=== PATIENT | female | born 1960 | race Caucasian/White ===

== ENCOUNTER 2016-12-01 14:30 | Emergency (ER) | payer BC, MEDICAID, SELFPAY ==
[~2016-12-01 14:30] MED LIST: /ADVA50050 IN; /MOXI40TA OR; /TIOT18INH INH; ALBUTEROL INH; ANTIDEPRESSANT PO; ASPI81TA83 OR; ATROVENT0.02% INH; CALCCHW12 OR; CENTRUM SILVER PO; CHOLESTEROL PILL PO; FISHCAP PO; IBUP600T OR; NYSTATIN TOP; PRED10TA2 OR; PRED20TA OR; PRED5TAB OR; ROBITUSSIN PE PO; SOY CARE PO; TESS100C OR; VENTAER IN
--- NOTE | 2016-12-01 16:24 | REP ---
CT Head without contrast HISTORY: Headache COMPARISON: None There is no intraparenchymal hemorrhage, acute infarct, mass or midline shift. The ventricular system is normal in appearance. There is no extra cerebral collection. There is no fracture. The visualized sinuses are clear. IMPRESSION: There is no intracranial lesion. Signed by Zaid Hurst MD 12/01/2016 04:15 P
[2016-12-01 16:55] LABS: BASO # 0.1 K/mm3 (0.0-0.2); BASO % 1.1 % (0.0-1.0); EOS # 0.1 K/mm3 (0.0-0.50); EOS % 1.5 % (0.0-3.0); LARGE UNSTAINED CELL # 0.2 K/mm3 (0.0-0.4); LARGE UNSTAINED CELL % 2.3 % (0.0-4.0); LYMPH # 1.4 K/mm3 (1.5-4.5); LYMPH % 17.6 % (24.0-44.0); MEAN CORPUSCULAR HEMOGLOBIN 28.9 pg (27.0-33.0); MEAN CORPUSCULAR HGB CONC 33.1 g/dl (32.0-36.5); MEAN CORPUSCULAR VOLUME 87.3 fl (80.0-96.0); MONO # 0.5 K/mm3 (0.0-0.8); MONO % 7.3 % (0.0-5.0); NEUTROPHILS % 70.1 % (36.0-66.0); PLATELET COUNT, AUTOMATED 209 k/mm3 (150-450); RED CELL DISTRIBUTION WIDTH 13.8 % (11.5-14.5); WHITE BLOOD COUNT 7.2 K/mm3 (4.0-10.0)
[2016-12-01 17:15] LABS: ALBUMIN 3.4 GM/DL (3.2-5.2); ALBUMIN/GLOBULIN RATIO 0.77 (1.00-1.93); ALKALINE PHOSPHATASE 102 U/L (45-117); ALT/SGPT 51 U/L (12-78); ANION GAP 9 MEQ/L (8-16); AST/SGOT 45 U/L (15-37); BILIRUBIN,DIRECT 0.2 MG/DL (0.0-0.2); BILIRUBIN,TOTAL 0.6 MG/DL (0.2-1.0); BLOOD UREA NITROGEN 16 MG/DL (7-18); CARBON DIOXIDE LEVEL 28 MEQ/L (21-32); CHLORIDE LEVEL 105 MEQ/L (98-107); CREATININE FOR GFR 0.84 MG/DL (0.55-1.02); GLOMERULAR FILTRATION RATE > 60.0 (>51); GLUCOSE, FASTING 122 MG/DL (70-105); POTASSIUM SERUM 3.1 MEQ/L (3.5-5.1); SODIUM LEVEL 142 MEQ/L (136-145); TOTAL PROTEIN 7.8 GM/DL (6.4-8.2)
[2016-12-01] MEDS ORDERED: KETOROLAC 30 MG/ML VIAL (J1885) As Ordered ONE (17:28)
--- NOTE | 2016-12-01 17:37 | EDDOCDS ---
[facility] Name: Tierra Aguilar Age: 56 yrs Sex: Female : 1960 Arrival Date: 12/01/2016 Time: 14:30 Bed I5 / M5 Private MD: Portia Barrera C Diagnosis: Headache;Cellulitis of left lower limb;Hypokalemia;Malaise and fatigue Presentation: 12/01 14:40 Presenting complaint: Patient states: Sent by Mitzi Barrera for infection to left lower ck1 leg. Adult Sepsis Screening: The patient does not have new or worsening altered mentation. Patient's respiratory rate is less than 22. Systolic blood pressure is greater than 100. Patient has a qSOFA score of 0- Negative Sepsis Screen. Suicide/Homicide risk assessment- the patient denies having any suicidal and/or homicidal ideations and does not present with any other emotional, behavioral or mental health complaints. 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 Transition of care: patient was not received from another setting of care. 14:40 Acuity: [place] Level 3 ck1 14:40 Method Of Arrival: Walkin/Carried/Asstd ck1 Triage Assessment: 14:44 General: Appears in no apparent distress, comfortable, Behavior is appropriate for age, ck1 cooperative. Pain: Location: left leg Pain currently is 4 out of 10 on a pain scale. Quality of pain is described as aching. HIV screening NA for this visit Offered previously. Respiratory: Respiratory effort is unlabored, Respiratory pattern is regular, symmetrical. Derm: Skin is pink, warm & dry. Musculoskeletal: Circulation, motion, and sensation intact Range of motion intact in all extremities. Historical: - Allergies: PENICILLINS; SULFA (SULFONAMIDES); Codeine Sulfate; Morphine; Darvocet-N 100; BACLOFEN; Tessalon Perles; Bees; - Home Meds: 1. none - PMHx: none; - PSHx: Cesearean Section; Laparoscopy; D & C; Hysterectomy; Biopsy, Breast- Right; Biopsy, Breast- Left; - Social history: Smoking status: Patient states former smoker of tobacco. No barriers to communication noted, The patient speaks fluent Cameroonian, Speaks appropriately for age. - : The pt / caregiver states he / she is not on anticoagulants. Home medication list is obtained from the patient. - Exposure Risk Screening:: None identified. Screenin:38 Screening information is obtained from the patient. Fall risk: No risks identified. jjr Assistance ADL's: requires no assistance with activities of daily living. Abuse/DV Screen: The patient / caregiver reports he/she is: not in a situation that causes fear, pain or injury. Nutritional screening: No deficits noted. Advance Directives: There is no active DNR order. home support is adequate. 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 Musculoskeletal: No deficits noted. 17:36 General: Appears in no apparent distress, pt continues to report CORBIN and left rosenthal pain. jjr Vital Signs: 14:32 BP 114 / 69; Pulse 91; Resp 18 S; Temp 96.5(O); Pulse Ox 98% on R/A; Weight 108.86 kg gr2 (R); Height 5 ft. 5 in. (165.10 cm) (R); Pain 5/10; 17:35 BP 140 / 71; Pulse 83; Resp 18; Temp 97(T); Pulse Ox 97% on R/A; Pain 8/10; jjr 14:32 Body Mass Index 39.94 (108.86 kg, 165.10 cm) gr2 Vitals: 14:32 Log In Time: December 01, 2016 at 14:32. gr2 ED Course: 14:31 Patient visited by Jonathan Mcneil. gr2 14:31 Patient moved to Waiting gr2 14:32 Portia Barrera is Private Physician. gr2 14:33 Patient visited by Jonathan Mcneil. gr2 14:33 Patient moved to Pre RCE gr2 14:41 Triage Initiated ck1 15:11 Patient moved to Triage 2 mlb1 15:12 Patient visited by Tesha Kong RN. ead 15:33 [facility]iley [facility]. cc10 15:33 Shaina Soliman MD is Attending Physician. cc10 15:33 Patient visited by Patricio Dailey PA-C. cc10 15:33 Patient visited by Patricio Dailey PA-C. cc10 16:02 Patient moved to I5 / M5 jrd 16:[address] jrd 16:04 Urinalysis Sent. ead 16:08 Patient moved to I5 / M5 jjr 16:24 Patient visited by Javid Koch PCA. jrd 16:24 EKG done. (by ED staff). Reviewed by Shaina Soliman MD. jrd 16:34 Basic Metabolic Profile Sent. jjr 16:34 CBC with Diff Sent. jjr 16:34 Cardiac Injury Profile Sent. jjr 16:34 Lipase Sent. jjr 16:34 Liver Profile Sent. jjr 16:34 Troponin Sent. jjr 16:35 Inserted saline lock: 20 gauge in left antecubital area and blood collected. Labs jjr drawn. (by ED staff). Sent per order to lab. 16:38 Patient visited by Karen Mcneil RN. jjr 16:38 The patient / caregiver is instructed regarding the plan of care and ED course. jjr 17:10 Patient visited by Payton Summers RN. mk4 17:14 CT Head Without Contrast Returned. EDMS 17:23 Portia Barrera is Referral Physician. cc10 17:35 Discontinued lock intact, bleeding controlled, pressure dressing applied, No jjr redness/swelling at site. No procedures done that require assistance. Administered Medications: 16:43 Drug: NS 0.9% 1000 ml [sodium chloride 0.9 % intravenous solution] Route: IV; Rate: jjr bolus; Site: left forearm; 17:34 Follow up: IV Status: Infusion discontinued; IV Intake: 600ml jjr 17:30 Drug: ketorolac 30 mg [ketorolac 30 mg/mL (1 mL) injection solution (1 mL)] Route: IVP; mk4 Site: left antecubital; Intake: 17:34 IV: 600.00ml; Total: 600.00ml. jjr Order Results: Lab Order: Basic Metabolic Profile; SPEC'M 12/01/16 16:32 Test: GLUCOSE, FASTING; Value: 122; Range: 70-105; Abnormal: Above high normal; Units: MG/DL; Status: F Test: BLOOD UREA NITROGEN; Value: 16; Range: 7-18; Units: MG/DL; Status: F Test: CREATININE FOR GFR; Value: 0.84; Range: 0.55-1.02; Units: MG/DL; Status: F Test: GLOMERULAR FILTRATION RATE; Value: > 60.0; Range: >51; Status: F Test: SODIUM LEVEL; Value: 142; Range: 136-145; Units: MEQ/L; Status: F Test: POTASSIUM SERUM; Value: 3.1; Range: 3.5-5.1; Abnormal: Below low normal; Units: MEQ/L; Status: F Test: CHLORIDE LEVEL; Value: 105; Range: 98-107; Units: MEQ/L; Status: F Test: CARBON DIOXIDE LEVEL; Value: 28; Range: 21-32; Units: MEQ/L; Status: F Test: ANION GAP; Value: 9; Range: 8-16; Units: MEQ/L; Status: F Test: CALCIUM LEVEL; Value: 9.0; Range: 8.5-10.1; Units: MG/DL; Status: F Test Note: ; Units are mL/min/1.73 m2 Chronic Kidney Disease Staging per NKF: Stage I & II GFR >=60 Normal to Mildly Decreased Stage III GFR 30-59 Moderately Decreased Stage IV GFR 15-29 Severely Decreased Stage V GFR <15 Very Little GFR Left ESRD GFR <15 on WIRE TWISTER Lab Order: CBC with Diff; SPEC'M 12/01/16 16:32 Test: WHITE BLOOD COUNT; Value: 7.2; Range: 4.0-10.0; Units: K/mm3; Status: F Test: RED BLOOD COUNT; Value: 4.51; Range: 4.00-5.40; Units: M/mm3; Status: F Test: HEMOGLOBIN; Value: 13.0; Range: 12.0-16.0; Units: g/dl; Status: F Test: HEMATOCRIT; Value: 39.3; Range: 36.0-47.0; Units: %; Status: F Test: MEAN CORPUSCULAR VOLUME; Value: 87.3; Range: 80.0-96.0; Units: fl; Status: F Test: MEAN CORPUSCULAR HEMOGLOBIN; Value: 28.9; Range: 27.0-33.0; Units: pg; Status: F Test: MEAN CORPUSCULAR HGB CONC; Value: 33.1; Range: 32.0-36.5; Units: g/dl; Status: F Test: RED CELL DISTRIBUTION WIDTH; Value: 13.8; Range: 11.5-14.5; Units: %; Status: F Test: PLATELET COUNT, AUTOMATED; Value: 209; Range: 150-450; Units: k/mm3; Status: F Test: NEUTROPHILS %; Value: 70.1; Range: 36.0-66.0; Abnormal: Above high normal; Units: %; Status: F Test: LYMPH %; Value: 17.6; Range: 24.0-44.0; Abnormal: Below low normal; Units: %; Status: F Test: MONO %; Value: 7.3; Range: 0.0-5.0; Abnormal: Above high normal; Units: %; Status: F Test: EOS %; Value: 1.5; Range: 0.0-3.0; Units: %; Status: F Test: BASO %; Value: 1.1; Range: 0.0-1.0; Abnormal: Above high normal; Units: %; Status: F Test: LARGE UNSTAINED CELL %; Value: 2.3; Range: 0.0-4.0; Units: %; Status: F Test: NEUTROPHILS #; Value: 5.0; Range: 1.8-7.7; Units: K/mm3; Status: F Test: LYMPH #; Value: 1.4; Range: 1.5-4.5; Abnormal: Below low normal; Units: K/mm3; Status: F Test: MONO #; Value: 0.5; Range: 0.0-0.8; Units: K/mm3; Status: F Test: EOS #; Value: 0.1; Range: 0.0-0.50; Units: K/mm3; Status: F Test: BASO #; Value: 0.1; Range: 0.0-0.2; Units: K/mm3; Status: F Test: LARGE UNSTAINED CELL #; Value: 0.2; Range: 0.0-0.4; Units: K/mm3; Status: F Lab Order: Cardiac Injury Profile; [facility] 12/01/16 16:32 Test: CPK CREATINE PHOSPHOKINASE; Value: 221; Range: 26-192; Abnormal: Above high normal; Units: U/L; Status: F Test: CK-MB VALUE MASS; Value: 4.1; Range: 0.0-3.6; Abnormal: Above high normal; Units: NG/ML; Status: F Test: MB/CK RELATIVE INDEX; Value: 1.85; Range: < OR =4; Status: F Test Note: ; DIAGNOSIS CRITERIA MMB ng/ml Relative Index (RI) NON-AMI < or = 5 N/A [place] > 5 < or = 4 AMI > 5 > 4 Lab Order: Lipase; [facility] 12/01/16 16:32 Test: LIPASE; Value: 155; Range: 73-393; Units: U/L; Status: F Lab Order: Liver Profile; [facility] 12/01/16 16:32 Test: AST/SGOT; Value: 45; Range: 15-37; Abnormal: Above high normal; Units: U/L; Status: F Test: ALT/SGPT; Value: 51; Range: 12-78; Units: U/L; Status: F Test: ALKALINE PHOSPHATASE; Value: 102; Range: 45-117; Units: U/L; Status: F Test: BILIRUBIN,TOTAL; Value: 0.6; Range: 0.2-1.0; Units: MG/DL; Status: F Test: BILIRUBIN,DIRECT; Value: 0.2; Range: 0.0-0.2; Units: MG/DL; Status: F Test: TOTAL PROTEIN; Value: 7.8; Range: 6.4-8.2; Units: GM/DL; Status: F Test: ALBUMIN; Value: 3.4; Range: 3.2-5.2; Units: GM/DL; Status: F Test: ALBUMIN/GLOBULIN RATIO; Value: 0.77; Range: 1.00-1.93; Abnormal: Below low normal; Status: F Lab Order: Troponin; [facility] 12/01/16 16:32 Test: TROPONIN I; Value: < 0.02; Range: < 0.10; Units: NG/ML; Status: F Test Note: ; Troponin I Reference Interval for Siemens PENRITH LOCI: 99th Percentile= 0.00-0.045 ng/ml Risk Stratification: <= 0.10 ng/ml Decreased Risk for Adverse Clinical Events. 0.10-1.50 ng/ml Increased Risk for Adverse Clinical Events. Evaluation of additional criterion and/or repeat testing in 2-6 hours is suggested to rule out myocardial damage. >= 1.50 ng/ml Indicative of Myocardial Injury. Lab Order: Urinalysis; SPEC'M 12/01/16 16:03 Test: APPEARANCE, URINE; Value: CLOUDY; Range: CLEAR; Abnormal: Above high normal; Status: F Test: COLOR, URINE; Value: JUSTINO; Range: YELLOW; Status: F Test: PH,URINE; Value: 5.0; Range: 5.0-9.0; Units: UNITS; Status: F Test: SPECIFIC GRAVITY URINE AUTO; Value: 1.024; Range: 1.002-1.035; Status: F Test: PROTEIN, URINE AUTO; Value: 1+; Range: NEGATIVE; Abnormal: Above high normal; Units: mg/dL; Status: F Test: GLUCOSE, URINE (UA) AUTO; Value: NEGATIVE; Range: NEGATIVE; Units: mg/dL; Status: F Test: KETONE, URINE AUTO; Value: TRACE; Range: NEGATIVE; Abnormal: Above high normal; Units: mg/dL; Status: F Test: UROBILINOGEN, URINE AUTO; Value: 4.0; Range: 0.0-2.0; Abnormal: Above high normal; Units: mg/dL; Status: F Test: BILIRUBIN, URINE AUTO; Value: NEGATIVE; Range: NEGATIVE; Status: F Test: NITRITE, URINE AUTO; Value: NEGATIVE; Range: NEGATIVE; Status: F Test: LEUKOCYTE ESTERASE, URINE AUTO; Value: NEGATIVE; Range: NEGATIVE; Status: F Test: BLOOD, URINE BLOOD; Value: NEGATIVE; Range: NEGATIVE; Status: F Test: WBC, URINE AUTO; Value: 1; Range: 0-3; Units: /HPF; Status: F Test: RBC, URINE AUTO; Value: 2; Range: 0-3; Units: /HPF; Status: F Test: BACTERIA, URINE AUTO; Value: NEGATIVE; Range: NEGATIVE; Status: F Test: SQUAMOUS EPITHELIAL CELL UR AU; Value: 2; Range: 0-6; Units: /HPF; Status: F Test: MUCUS, URINE; Value: MODERATE; Range: NEGATIVE; Status: F Test: HYALINE CAST, URINE AUTO; Value: 0; Range: 0-1; Units: /LPF; Status: F Test: AMORPHOUS SEDIMENT; Value: SMALL; Range: NEGATIVE; Abnormal: Above high normal; Status: F Radiology Order: CT Head Without Contrast Test: CT Head Without Contrast REASON FOR EXAMINATION: Headache; CT Head without contrast; ; HISTORY: Headache; ; COMPARISON: None; ; There is no intraparenchymal hemorrhage, acute infarct, mass or midline shift.; The ventricular system is normal in appearance. There is no extra cerebral; collection. There is no fracture. The visualized sinuses are clear.; ; IMPRESSION: There is no intracranial lesion.; ; ; ; ; Signed by; Zaid Hurst MD 12/01/2016 04:15 P; Outcome: 17:24 Discharge ordered by Provider. cc10 17:36 Discharge Assessment: patient administered narcotics - no. The following High Risk jjr Discharge criteria are identified: None. Discharged to home ambulatory. Condition: stable. Discharge instructions given to patient, Instructed on discharge instructions, follow up and referral plans. medication usage, Demonstrated understanding of instructions, medications, Prescriptions given X 2, Work note provided to patient. CT Study completed. Property sent home with patient. 17:36 Patient left the ED. jjr Signatures: Dispatcher [employer] EDCO Julio Murray RN RN mlb1 Talisha LunaRN RN ck1 Karen Mcneil RN RN jjr Raymond, Gains[place] gr2 Payton Summers RN RN mk4 Tesha Kong RN RN ead Coniski, Colin, PA-C PA-C cc10 Javid Koch PCA PCA jrd MTDD
--- NOTE | 2016-12-01 17:37 | EDDOCDS ---
Physician Documentation [facility] Name: Tierra Aguilar Age: 56 yrs Sex: Female : 1960 Arrival Date: 12/01/2016 Time: 14:30 Bed I5 / M5 Private MD: Portia Barrera C Disposition: 12/01/16 17:24 Discharged to Home/Self Care. Impression: Headache, Cellulitis of left lower limb, Hypokalemia, Malaise and fatigue. - Condition is Stable. - Discharge Instructions: Cellulitis, Potassium Content of Foods, General Headache Without Cause. - Prescriptions for Potassium Chloride 20 mEq Oral Tablet Extended Release - take 1 tablet by ORAL route once daily for 14 days; 14 tablet. Doxycycline Monohydrate 100 mg Oral Tablet - take 1 tablet by ORAL route every 12 hours for 10 days; 20 tablet. - Medication Reconciliation, Local Pharmacy Hours, Work Release Form - 2 day form. - Follow up: Emergency Department; When: As needed; Reason: Worsening of conditions. Follow up: Portia Barrera; When: 1 week; Reason: Wound/Symptom Recheck, Recheck today's complaints, Worsening of conditions, Continuance of care, recheck potassium level in one week. . - Problem is an ongoing problem. - Symptoms have improved. Historical: - Allergies: PENICILLINS; SULFA (SULFONAMIDES); Codeine Sulfate; Morphine; Darvocet-N 100; BACLOFEN; Tessalon Perles; Bees; - Home Meds: 1. none - PMHx: none; - PSHx: Cesearean Section; Laparoscopy; D & C; Hysterectomy; Biopsy, Breast- Right; Biopsy, Breast- Left; - Social history: Smoking status: Patient states former smoker of tobacco. No barriers to communication noted, The patient speaks fluent Luxembourgish, Speaks appropriately for age. - : The pt / caregiver states he / she is not on anticoagulants. Home medication list is obtained from the patient. - Exposure Risk Screening:: None identified. Vital Signs: 12/01 14:32 BP 114 / 69; Pulse 91; Resp 18 S; Temp 96.5(O); Pulse Ox 98% on R/A; Weight 108.86 kg / gr2 240 lbs (R); Height 5 ft. 5 in. (165.10 cm) (R); Pain 5/10; 17:35 BP 140 / 71; Pulse 83; Resp 18; Temp 97(T); Pulse Ox 97% on R/A; Pain 8/10; jjr 14:32 Body Mass Index 39.94 (108.86 kg, 165.10 cm) gr2 MDM: 15:55 NS 0.9% 1000 ml IV at bolus once ordered. cc10 15:55 IV Saline Lock ordered. cc10 15:55 Undress patient appropriately for examination ordered. cc10 15:56 Basic Metabolic Profile Ordered. EDMS 15:56 CBC with Diff Ordered. EDMS 15:56 Cardiac Injury Profile Ordered. EDMS 15:56 Lipase Ordered. EDMS 15:56 Liver Profile Ordered. EDMS 15:56 Troponin Ordered. EDMS 15:56 Urinalysis Ordered. EDMS 15:57 NOTHING BY MOUTH+DIET ordered. EDMS 15:57 ECG WITH READING ER PHYS+CARDIAG ordered. EDMS 15:57 CT Head Without Contrast Ordered. EDMS 17:24 ketorolac 30 mg IVP once ordered. cc10 Administered Medications: 16:43 Drug: NS 0.9% 1000 ml [sodium chloride 0.9 % intravenous solution] Route: IV; Rate: jjr bolus; Site: left forearm; 17:34 Follow up: IV Status: Infusion discontinued; IV Intake: 600ml jjr 17:30 Drug: ketorolac 30 mg [ketorolac 30 mg/mL (1 mL) injection solution (1 mL)] Route: IVP; mk4 Site: left antecubital; Signatures: Dispatcher [employer] EDTalisha ElliottRN RN ck1 Karen Mcneil RN RN jjPatricio Gunn, PA-Obi PA-C cc10 Payton Summers RN mk4 MTDD
--- NOTE | 2016-12-01 21:22 | ECGEPIP ---
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
--- NOTE | 2016-12-03 18:37 | EDDOCDS ---
Physician Documentation [facility] Name: Tierra Aguilar Age: 56 yrs Sex: Female : 1960 Arrival Date: 12/01/2016 Time: 14:30 Bed I5 / M5 Private MD: Portia Barrera C Disposition: 12/01/16 17:24 Discharged to Home/Self Care. Impression: Headache, Cellulitis of left lower limb, Hypokalemia, Malaise and fatigue. - Condition is Stable. - Discharge Instructions: Cellulitis, Potassium Content of Foods, General Headache Without Cause. - Prescriptions for Potassium Chloride 20 mEq Oral Tablet Extended Release - take 1 tablet by ORAL route once daily for 14 days; 14 tablet. Doxycycline Monohydrate 100 mg Oral Tablet - take 1 tablet by ORAL route every 12 hours for 10 days; 20 tablet. - Medication Reconciliation, Local Pharmacy Hours, Work Release Form - 2 day form. - Follow up: Emergency Department; When: As needed; Reason: Worsening of conditions. Follow up: Portia Barrera; When: 1 week; Reason: Wound/Symptom Recheck, Recheck today's complaints, Worsening of conditions, Continuance of care, recheck potassium level in one week. . - Problem is an ongoing problem. - Symptoms have improved. Historical: - Allergies: PENICILLINS; SULFA (SULFONAMIDES); Codeine Sulfate; Morphine; Darvocet-N 100; BACLOFEN; Tessalon Perles; Bees; - Home Meds: 1. none - PMHx: none; - PSHx: Cesearean Section; Laparoscopy; D & C; Hysterectomy; Biopsy, Breast- Right; Biopsy, Breast- Left; - Social history: Smoking status: Patient states former smoker of tobacco. No barriers to communication noted, The patient speaks fluent Upper Sorbian, Speaks appropriately for age. - : The pt / caregiver states he / she is not on anticoagulants. Home medication list is obtained from the patient. - Exposure Risk Screening:: None identified. Vital Signs: 12/01 14:32 BP 114 / 69; Pulse 91; Resp 18 S; Temp 96.5(O); Pulse Ox 98% on R/A; Weight 108.86 kg / gr2 240 lbs (R); Height 5 ft. 5 in. (165.10 cm) (R); Pain 5/10; 17:35 BP 140 / 71; Pulse 83; Resp 18; Temp 97(T); Pulse Ox 97% on R/A; Pain 8/10; jjr 14:32 Body Mass Index 39.94 (108.86 kg, 165.10 cm) gr2 MDM: 15:55 NS 0.9% 1000 ml IV at bolus once ordered. cc10 15:55 IV Saline Lock ordered. cc10 15:55 Undress patient appropriately for examination ordered. cc10 15:56 Basic Metabolic Profile Ordered. EDMS 15:56 CBC with Diff Ordered. EDMS 15:56 Cardiac Injury Profile Ordered. EDMS 15:56 Lipase Ordered. EDMS 15:56 Liver Profile Ordered. EDMS 15:56 Troponin Ordered. EDMS 15:56 Urinalysis Ordered. EDMS 15:57 NOTHING BY MOUTH+DIET ordered. EDMS 15:57 ECG WITH READING ER PHYS+CARDIAG ordered. EDMS 15:57 CT Head Without Contrast Ordered. EDMS 17:24 ketorolac 30 mg IVP once ordered. cc10 17:37 [facility] Payment Agreement was scanned into [employer] and attached to record. gjb 17:37 Financial registration complete. gjb 18:23 [facility] Payment Agreement was scanned into [employer] and attached to record. lg 12/02 10:28 T-Sheet-- Draft Copy was scanned into [employer] and attached to record. gb 10:29 ECG/EKG was scanned into [employer] and attached to record. gb Administered Medications: 12/01 16:43 Drug: NS 0.9% 1000 ml [sodium chloride 0.9 % intravenous solution] Route: IV; Rate: jjr bolus; Site: left forearm; 17:34 Follow up: IV Status: Infusion discontinued; IV Intake: 600ml jjr 17:30 Drug: ketorolac 30 mg [ketorolac 30 mg/mL (1 mL) injection solution (1 mL)] Route: IVP; mk4 Site: left antecubital; Signatures: Dispatcher [employer] EDMS Sandhya Gabriel, Reg Reg gb Jacoby Brooks, Reg Reg lg Talisha Luna RN RN ck1 Karen Mcneil RN RN jjPatricio Gunn PA-C PALeo cc10 Aruna Fay Margaret RN mk4 The chart was reviewed and I authenticate all verbal orders and agree with the evaluation and treatment provided.Attachments: 18:23 [facility] Payment Agreement lg 12/02 10:28 T-Sheet-- Draft Copy gb 10:29 ECG/EKG gb Chart Complete MTDD
--- NOTE | 2016-12-03 18:37 | EDDOCDS ---
Physician Documentation [facility] Name: Tierra Aguilar Age: 56 yrs Sex: Female : 1960 Arrival Date: 12/01/2016 Time: 14:30 Bed I5 / M5 Private MD: Portia Barrera C Disposition: 12/01/16 17:24 Discharged to Home/Self Care. Impression: Headache, Cellulitis of left lower limb, Hypokalemia, Malaise and fatigue. - Condition is Stable. - Discharge Instructions: Cellulitis, Potassium Content of Foods, General Headache Without Cause. - Prescriptions for Potassium Chloride 20 mEq Oral Tablet Extended Release - take 1 tablet by ORAL route once daily for 14 days; 14 tablet. Doxycycline Monohydrate 100 mg Oral Tablet - take 1 tablet by ORAL route every 12 hours for 10 days; 20 tablet. - Medication Reconciliation, Local Pharmacy Hours, Work Release Form - 2 day form. - Follow up: Emergency Department; When: As needed; Reason: Worsening of conditions. Follow up: Portia Barrera; When: 1 week; Reason: Wound/Symptom Recheck, Recheck today's complaints, Worsening of conditions, Continuance of care, recheck potassium level in one week. . - Problem is an ongoing problem. - Symptoms have improved. Historical: - Allergies: PENICILLINS; SULFA (SULFONAMIDES); Codeine Sulfate; Morphine; Darvocet-N 100; BACLOFEN; Tessalon Perles; Bees; - Home Meds: 1. none - PMHx: none; - PSHx: Cesearean Section; Laparoscopy; D & C; Hysterectomy; Biopsy, Breast- Right; Biopsy, Breast- Left; - Social history: Smoking status: Patient states former smoker of tobacco. No barriers to communication noted, The patient speaks fluent Occitan, Speaks appropriately for age. - : The pt / caregiver states he / she is not on anticoagulants. Home medication list is obtained from the patient. - Exposure Risk Screening:: None identified. Vital Signs: 12/01 14:32 BP 114 / 69; Pulse 91; Resp 18 S; Temp 96.5(O); Pulse Ox 98% on R/A; Weight 108.86 kg / gr2 240 lbs (R); Height 5 ft. 5 in. (165.10 cm) (R); Pain 5/10; 17:35 BP 140 / 71; Pulse 83; Resp 18; Temp 97(T); Pulse Ox 97% on R/A; Pain 8/10; jjr 14:32 Body Mass Index 39.94 (108.86 kg, 165.10 cm) gr2 MDM: 15:55 NS 0.9% 1000 ml IV at bolus once ordered. cc10 15:55 IV Saline Lock ordered. cc10 15:55 Undress patient appropriately for examination ordered. cc10 15:56 Basic Metabolic Profile Ordered. EDMS 15:56 CBC with Diff Ordered. EDMS 15:56 Cardiac Injury Profile Ordered. EDMS 15:56 Lipase Ordered. EDMS 15:56 Liver Profile Ordered. EDMS 15:56 Troponin Ordered. EDMS 15:56 Urinalysis Ordered. EDMS 15:57 NOTHING BY MOUTH+DIET ordered. EDMS 15:57 ECG WITH READING ER PHYS+CARDIAG ordered. EDMS 15:57 CT Head Without Contrast Ordered. EDMS 17:24 ketorolac 30 mg IVP once ordered. cc10 17:37 [facility] Payment Agreement was scanned into [employer] and attached to record. gjb 17:37 Financial registration complete. gjb 18:23 [facility] Payment Agreement was scanned into [employer] and attached to record. lg 12/02 10:28 T-Sheet-- Draft Copy was scanned into [employer] and attached to record. gb 10:29 ECG/EKG was scanned into [employer] and attached to record. gb Administered Medications: 12/01 16:43 Drug: NS 0.9% 1000 ml [sodium chloride 0.9 % intravenous solution] Route: IV; Rate: jjr bolus; Site: left forearm; 17:34 Follow up: IV Status: Infusion discontinued; IV Intake: 600ml jjr 17:30 Drug: ketorolac 30 mg [ketorolac 30 mg/mL (1 mL) injection solution (1 mL)] Route: IVP; mk4 Site: left antecubital; Signatures: Dispatcher [employer] EDMS Sandhya Gabriel, Reg Reg gb Jacoby Brooks, Reg Reg lg Talisha Luna RN RN ck1 Karen Mcneil RN RN jjPatricio Gunn PA-C PALeo cc10 Aruna Fay Margaret RN mk4 The chart was reviewed and I authenticate all verbal orders and agree with the evaluation and treatment provided.Attachments: 18:23 [place] [place] Agreement lg 12/02 10:28 T-Sheet-- Draft Copy gb 10:29 ECG/EKG gb Chart Complete MTDD
--- NOTE | 2016-12-03 18:37 | EDDOCDS ---
Nurse's Notes [facility] Name: Tierra Aguilar Age: 56 yrs Sex: Female : 1960 Arrival Date: 12/01/2016 Time: 14:30 Bed I5 / M5 Private MD: Portia Barrera C Diagnosis: Headache;Cellulitis of left lower limb;Hypokalemia;Malaise and fatigue Presentation: 12/01 14:40 Presenting complaint: Patient states: Sent by Mitzi Barrera for infection to left lower ck1 leg. Adult Sepsis Screening: The patient does not have new or worsening altered mentation. Patient's respiratory rate is less than 22. Systolic blood pressure is greater than 100. Patient has a qSOFA score of 0- Negative Sepsis Screen. Suicide/Homicide risk assessment- the patient denies having any suicidal and/or homicidal ideations and does not present with any other emotional, behavioral or mental health complaints. 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 Transition of care: patient was not received from another setting of care. 14:40 Acuity: [place] Level 3 ck1 14:40 Method Of Arrival: Walkin/Carried/Asstd ck1 Triage Assessment: 14:44 General: Appears in no apparent distress, comfortable, Behavior is appropriate for age, ck1 cooperative. Pain: Location: left leg Pain currently is 4 out of 10 on a pain scale. Quality of pain is described as aching. HIV screening NA for this visit Offered previously. Respiratory: Respiratory effort is unlabored, Respiratory pattern is regular, symmetrical. Derm: Skin is pink, warm & dry. Musculoskeletal: Circulation, motion, and sensation intact Range of motion intact in all extremities. Historical: - Allergies: PENICILLINS; SULFA (SULFONAMIDES); Codeine Sulfate; Morphine; Darvocet-N 100; BACLOFEN; Tessalon Perles; Bees; - Home Meds: 1. none - PMHx: none; - PSHx: Cesearean Section; Laparoscopy; D & C; Hysterectomy; Biopsy, Breast- Right; Biopsy, Breast- Left; - Social history: Smoking status: Patient states former smoker of tobacco. No barriers to communication noted, The patient speaks fluent [place], Speaks appropriately for age. - : The pt / caregiver states he / she is not on anticoagulants. Home medication list is obtained from the patient. - Exposure Risk Screening:: None identified. Screenin:38 Screening information is obtained from the patient. Fall risk: No risks identified. jjr Assistance ADL's: requires no assistance with activities of daily living. Abuse/DV Screen: The patient / caregiver reports he/she is: not in a situation that causes fear, pain or injury. Nutritional screening: No deficits noted. Advance Directives: There is no active DNR order. home support is adequate. 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 Musculoskeletal: No deficits noted. 17:36 General: Appears in no apparent distress, pt continues to report CORBIN and left rosenthal pain. jjr Vital Signs: 14:32 BP 114 / 69; Pulse 91; Resp 18 S; Temp 96.5(O); Pulse Ox 98% on R/A; Weight 108.86 kg gr2 (R); Height 5 ft. 5 in. (165.10 cm) (R); Pain 5/10; 17:35 BP 140 / 71; Pulse 83; Resp 18; Temp 97(T); Pulse Ox 97% on R/A; Pain 8/10; jjr 14:32 Body Mass Index 39.94 (108.86 kg, 165.10 cm) gr2 Vitals: 14:32 Log In Time: December 01, 2016 at 14:32. gr2 ED Course: 14:31 Patient visited by Jonathan Mcneil. gr2 14:31 Patient moved to Waiting gr2 14:32 Portia Barrera is Private Physician. gr2 14:33 Patient visited by Jonathan Mcneil. gr2 14:33 Patient moved to Pre RCE gr2 14:41 Triage Initiated ck1 15:11 Patient moved to Triage 2 mlb1 15:12 Patient visited by Tesha Kong RN. ead 15:33 [facility] cc10 15:33 Shaina Soliman MD is Attending Physician. cc10 15:33 Patient visited by Patricio Dailey PA-C. cc10 15:33 Patient visited by Patricio Dailey PA-C. cc10 16:02 Patient moved to I5 / M5 jrd 16:[address] jrd 16:04 Urinalysis Sent. ead 16:08 Patient moved to I5 / M5 jjr 16:24 Patient visited by Javid Koch PCA. jrd 16:24 EKG done. (by ED staff). Reviewed by Shaina Soliman MD. jrd 16:34 Basic Metabolic Profile Sent. jjr 16:34 CBC with Diff Sent. jjr 16:34 Cardiac Injury Profile Sent. jjr 16:34 Lipase Sent. jjr 16:34 Liver Profile Sent. jjr 16:34 Troponin Sent. jjr 16:35 Inserted saline lock: 20 gauge in left antecubital area and blood collected. Labs jjr drawn. (by ED staff). Sent per order to lab. 16:38 Patient visited by Karen Mcneil RN. jjr 16:38 The patient / caregiver is instructed regarding the plan of care and ED course. jjr 17:10 Patient visited by Payton Summers RN. mk4 17:14 CT Head Without Contrast Returned. EDMS 17:23 Portia Barrera is Referral Physician. cc10 17:35 Discontinued lock intact, bleeding controlled, pressure dressing applied, No jjr redness/swelling at site. No procedures done that require assistance. 17:37 [facility] [place] was scanned into [employer] and attached to record. gjb 18:23 [facility] [place] was scanned into [employer] and attached to record. lg 21:58 EKG-ADULT Returned. EDMS 12/02 10:28 T-Sheet-- Draft Copy was scanned into [employer] and attached to record. gb 10:29 ECG/EKG was scanned into [employer] and attached to record. gb Administered Medications: 12/01 16:43 Drug: NS 0.9% 1000 ml [sodium chloride 0.9 % intravenous solution] Route: IV; Rate: jjr bolus; Site: left forearm; 17:34 Follow up: IV Status: Infusion discontinued; IV Intake: 600ml jjr 17:30 Drug: ketorolac 30 mg [ketorolac 30 mg/mL (1 mL) injection solution (1 mL)] Route: IVP; mk4 Site: left antecubital; Intake: 17:34 IV: 600.00ml; Total: 600.00ml. jjr Order Results: Lab Order: Basic Metabolic Profile; SPEC'M 12/01/16 16:32 Test: GLUCOSE, FASTING; Value: 122; Range: 70-105; Abnormal: Above high normal; Units: MG/DL; Status: F Test: BLOOD UREA NITROGEN; Value: 16; Range: 7-18; Units: MG/DL; Status: F Test: CREATININE FOR GFR; Value: 0.84; Range: 0.55-1.02; Units: MG/DL; Status: F Test: GLOMERULAR FILTRATION RATE; Value: > 60.0; Range: >51; Status: F Test: SODIUM LEVEL; Value: 142; Range: 136-145; Units: MEQ/L; Status: F Test: POTASSIUM SERUM; Value: 3.1; Range: 3.5-5.1; Abnormal: Below low normal; Units: MEQ/L; Status: F Test: CHLORIDE LEVEL; Value: 105; Range: 98-107; Units: MEQ/L; Status: F Test: CARBON DIOXIDE LEVEL; Value: 28; Range: 21-32; Units: MEQ/L; Status: F Test: ANION GAP; Value: 9; Range: 8-16; Units: MEQ/L; Status: F Test: CALCIUM LEVEL; Value: 9.0; Range: 8.5-10.1; Units: MG/DL; Status: F Test Note: ; Units are mL/min/1.73 m2 Chronic Kidney Disease Staging per NKF: Stage I & II GFR >=60 Normal to Mildly Decreased Stage III GFR 30-59 Moderately Decreased Stage IV GFR 15-29 Severely Decreased Stage V GFR <15 Very Little GFR Left ESRD GFR <15 on ARCADE TECHNICIAN Lab Order: CBC with Diff; SPEC'M 12/01/16 16:32 Test: WHITE BLOOD COUNT; Value: 7.2; Range: 4.0-10.0; Units: K/mm3; Status: F Test: RED BLOOD COUNT; Value: 4.51; Range: 4.00-5.40; Units: M/mm3; Status: F Test: HEMOGLOBIN; Value: 13.0; Range: 12.0-16.0; Units: g/dl; Status: F Test: HEMATOCRIT; Value: 39.3; Range: 36.0-47.0; Units: %; Status: F Test: MEAN CORPUSCULAR VOLUME; Value: 87.3; Range: 80.0-96.0; Units: fl; Status: F Test: MEAN CORPUSCULAR HEMOGLOBIN; Value: 28.9; Range: 27.0-33.0; Units: pg; Status: F Test: MEAN CORPUSCULAR HGB CONC; Value: 33.1; Range: 32.0-36.5; Units: g/dl; Status: F Test: RED CELL DISTRIBUTION WIDTH; Value: 13.8; Range: 11.5-14.5; Units: %; Status: F Test: PLATELET COUNT, AUTOMATED; Value: 209; Range: 150-450; Units: k/mm3; Status: F Test: NEUTROPHILS %; Value: 70.1; Range: 36.0-66.0; Abnormal: Above high normal; Units: %; Status: F Test: LYMPH %; Value: 17.6; Range: 24.0-44.0; Abnormal: Below low normal; Units: %; Status: F Test: MONO %; Value: 7.3; Range: 0.0-5.0; Abnormal: Above high normal; Units: %; Status: F Test: EOS %; Value: 1.5; Range: 0.0-3.0; Units: %; Status: F Test: BASO %; Value: 1.1; Range: 0.0-1.0; Abnormal: Above high normal; Units: %; Status: F Test: LARGE UNSTAINED CELL %; Value: 2.3; Range: 0.0-4.0; Units: %; Status: F Test: NEUTROPHILS #; Value: 5.0; Range: 1.8-7.7; Units: K/mm3; Status: F Test: LYMPH #; Value: 1.4; Range: 1.5-4.5; Abnormal: Below low normal; Units: K/mm3; Status: F Test: MONO #; Value: 0.5; Range: 0.0-0.8; Units: K/mm3; Status: F Test: EOS #; Value: 0.1; Range: 0.0-0.50; Units: K/mm3; Status: F Test: BASO #; Value: 0.1; Range: 0.0-0.2; Units: K/mm3; Status: F Test: LARGE UNSTAINED CELL #; Value: 0.2; Range: 0.0-0.4; Units: K/mm3; Status: F Lab Order: Cardiac Injury Profile; [facility] 12/01/16 16:32 Test: CPK CREATINE PHOSPHOKINASE; Value: 221; Range: 26-192; Abnormal: Above high normal; Units: U/L; Status: F Test: CK-MB VALUE MASS; Value: 4.1; Range: 0.0-3.6; Abnormal: Above high normal; Units: NG/ML; Status: F Test: MB/CK RELATIVE INDEX; Value: 1.85; Range: < OR =4; Status: F Test Note: ; DIAGNOSIS CRITERIA MMB ng/ml Relative Index (RI) NON-AMI < or = 5 N/A [place] > 5 < or = 4 AMI > 5 > 4 Lab Order: Lipase; [facility] 12/01/16 16:32 Test: LIPASE; Value: 155; Range: 73-393; Units: U/L; Status: F Lab Order: Liver Profile; [facility] 12/01/16 16:32 Test: AST/SGOT; Value: 45; Range: 15-37; Abnormal: Above high normal; Units: U/L; Status: F Test: ALT/SGPT; Value: 51; Range: 12-78; Units: U/L; Status: F Test: ALKALINE PHOSPHATASE; Value: 102; Range: 45-117; Units: U/L; Status: F Test: BILIRUBIN,TOTAL; Value: 0.6; Range: 0.2-1.0; Units: MG/DL; Status: F Test: BILIRUBIN,DIRECT; Value: 0.2; Range: 0.0-0.2; Units: MG/DL; Status: F Test: TOTAL PROTEIN; Value: 7.8; Range: 6.4-8.2; Units: GM/DL; Status: F Test: ALBUMIN; Value: 3.4; Range: 3.2-5.2; Units: GM/DL; Status: F Test: ALBUMIN/GLOBULIN RATIO; Value: 0.77; Range: 1.00-1.93; Abnormal: Below low normal; Status: F Lab Order: Troponin; SPEC'M 12/01/16 16:32 Test: TROPONIN I; Value: < 0.02; Range: < 0.10; Units: NG/ML; Status: F Test Note: ; Troponin I Reference Interval for Siemens GlySure LOCI: 99th Percentile= 0.00-0.045 ng/ml Risk Stratification: <= 0.10 ng/ml Decreased Risk for Adverse Clinical Events. 0.10-1.50 ng/ml Increased Risk for Adverse Clinical Events. Evaluation of additional criterion and/or repeat testing in 2-6 hours is suggested to rule out myocardial damage. >= 1.50 ng/ml Indicative of Myocardial Injury. Lab Order: Urinalysis; SPEC'M 12/01/16 16:03 Test: APPEARANCE, URINE; Value: CLOUDY; Range: CLEAR; Abnormal: Above high normal; Status: F Test: COLOR, URINE; Value: JUSTINO; Range: YELLOW; Status: F Test: PH,URINE; Value: 5.0; Range: 5.0-9.0; Units: UNITS; Status: F Test: SPECIFIC GRAVITY URINE AUTO; Value: 1.024; Range: 1.002-1.035; Status: F Test: PROTEIN, URINE AUTO; Value: 1+; Range: NEGATIVE; Abnormal: Above high normal; Units: mg/dL; Status: F Test: GLUCOSE, URINE (UA) AUTO; Value: NEGATIVE; Range: NEGATIVE; Units: mg/dL; Status: F Test: KETONE, URINE AUTO; Value: TRACE; Range: NEGATIVE; Abnormal: Above high normal; Units: mg/dL; Status: F Test: UROBILINOGEN, URINE AUTO; Value: 4.0; Range: 0.0-2.0; Abnormal: Above high normal; Units: mg/dL; Status: F Test: BILIRUBIN, URINE AUTO; Value: NEGATIVE; Range: NEGATIVE; Status: F Test: NITRITE, URINE AUTO; Value: NEGATIVE; Range: NEGATIVE; Status: F Test: LEUKOCYTE ESTERASE, URINE AUTO; Value: NEGATIVE; Range: NEGATIVE; Status: F Test: BLOOD, URINE BLOOD; Value: NEGATIVE; Range: NEGATIVE; Status: F Test: WBC, URINE AUTO; Value: 1; Range: 0-3; Units: /HPF; Status: F Test: RBC, URINE AUTO; Value: 2; Range: 0-3; Units: /HPF; Status: F Test: BACTERIA, URINE AUTO; Value: NEGATIVE; Range: NEGATIVE; Status: F Test: SQUAMOUS EPITHELIAL CELL UR AU; Value: 2; Range: 0-6; Units: /HPF; Status: F Test: MUCUS, URINE; Value: MODERATE; Range: NEGATIVE; Status: F Test: HYALINE CAST, URINE AUTO; Value: 0; Range: 0-1; Units: /LPF; Status: F Test: AMORPHOUS SEDIMENT; Value: SMALL; Range: NEGATIVE; Abnormal: Above high normal; Status: F Radiology Order: EKG-ADULT Test: EKG-ADULT REASON FOR EXAMINATION: Chest Pain; Stationary ECG Study; [facility] - ED; ; Test Date: 2016-12-01; Pat Name: TIERRA AGUILAR Department:; Room: -; Gender: F 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: [place]; : 1960 Requested By: Patricio Dailey PA-C; Order Number: [id number] Reading MD: Luis Downey; Measurements; Intervals [place]; Rate: 80 P: 36; VT: 190 QRS: -19; QRSD: 98 T: 40; QT: 369; QTc: 428; Interpretive Statements; SINUS RHYTHM; ; Electronically Signed On 12-01-2016 21:21:49 EST by Luis Downey; Radiology Order: CT Head Without Contrast Test: CT Head Without Contrast REASON FOR EXAMINATION: Headache; CT Head without contrast; ; HISTORY: Headache; ; COMPARISON: None; ; There is no intraparenchymal hemorrhage, acute infarct, mass or midline shift.; The ventricular system is normal in appearance. There is no extra cerebral; collection. There is no fracture. The visualized sinuses are clear.; ; IMPRESSION: There is no intracranial lesion.; ; ; ; ; Signed by; Zaid Hurst MD 12/01/2016 04:15 P; Outcome: 17:24 Discharge ordered by Provider. cc10 17:36 Discharge Assessment: patient administered narcotics - no. The following High Risk jjr Discharge criteria are identified: None. Discharged to home ambulatory. Condition: stable. Discharge instructions given to patient, Instructed on discharge instructions, follow up and referral plans. medication usage, Demonstrated understanding of instructions, medications, Prescriptions given X 2, Work note provided to patient. CT Study completed. Property sent home with patient. 17:36 Patient left the ED. jjr Signatures: Dispatcher [employer] EDMS Sandhya Gabriel, Reg Reg gb Jacoby Brooks, Reg Reg lg Trevor, Julio Olivas RN RN mlb1 Talisha LunaRN RN ck1 Karen Mcneil RN RN jjJonathan Sawyer gr2 Payton Summers, RN RN mk4 Tesha Kong,RN RN Patricio Garcia, PA-C PA-C cc10 Javid Koch, [facility] Aruna Lock Chart Complete AGNES
== END 2016-12-01 17:36 | disposition home or self-care (01) ==
LOC: M ED 14:30
DX: R53.83 Other fatigue (principal); E87.6 Hypokalemia; R51 Headache; L03.116 Cellulitis of left lower limb; Z87.891 Personal history of nicotine dependence; Z88.0 Allergy status to penicillin; Z88.2 Allergy status to sulfonamides; Z88.8 Allergy status to other drugs, medicaments and biological substances; Z91.030 Bee allergy status
CPT/HCPCS: 36415; 70450; 80048; 80076; 81001; 82550; 82553; 83690; 85025; 93005; 96361; 96374; 99284; J1885

== ENCOUNTER → 2016-12-05 | Outpatient (CLI) | payer SELFPAY ==
--- NOTE | 2016-12-05 09:30 | REP ---
Left lower extremity Duplex Doppler venous ultrasound: Real time compression and duplex Doppler interrogation of the left lower extremity deep venous system is performed. The left common femoral, superficial femoral and popliteal veins are fully compressible with transducer pressure and demonstrate normal spontaneous and phasic flow, without evidence of deep venous thrombosis. Impression: No evidence of deep venous thrombosis of the left lower extremity femoral popliteal venous system. There is a edema in the calf in the area of swelling and redness. Signed by Enoch Bridges MD 12/05/2016 09:21 A
== END ==
LOC: M RAD 08:35
PROVIDERS: ATTEND Physician Assistant Medical
DX: M79.605 Pain in left leg (principal); R22.42 Localized swelling, mass and lump, left lower limb

== ENCOUNTER → 2016-12-07 | Outpatient (CLI) | payer SELFPAY ==
[2016-12-07 09:33] LABS: BASO % 0.3 % (0.0-1.0); EOS # 0.2 K/mm3 (0.0-0.50); EOS % 3.4 % (0.0-3.0); LYMPH # 1.1 K/mm3 (1.5-4.5); LYMPH % 23.1 % (24.0-44.0); MEAN CORPUSCULAR HGB CONC 33.5 g/dl (32.0-36.5); MEAN CORPUSCULAR VOLUME 86.6 fl (80.0-96.0); MONO # 0.3 K/mm3 (0.0-0.8); MONO % 6.1 % (0.0-5.0); NEUTROPHILS % 65.5 % (36.0-66.0); RED CELL DISTRIBUTION WIDTH 12.5 % (11.5-14.5); WHITE BLOOD COUNT 4.5 K/mm3 (4.0-10.0)
[2016-12-07 10:02] LABS: VITAMIN B12 LEVEL 442 PG/ML
[2016-12-07 10:03] LABS: FOLATE 13.2 NG/ML
[2016-12-07 10:07] LABS: ALBUMIN 3.2 GM/DL (3.2-5.2); ALBUMIN/GLOBULIN RATIO 0.78 (1.00-1.93); ALKALINE PHOSPHATASE 141 U/L (45-117); ALT/SGPT 64 U/L (12-78); ANION GAP 8 MEQ/L (8-16); AST/SGOT 35 U/L (15-37); BILIRUBIN,TOTAL 0.6 MG/DL (0.2-1.0); BLOOD UREA NITROGEN 9 MG/DL (7-18); CARBON DIOXIDE LEVEL 29 MEQ/L (21-32); CHLORIDE LEVEL 105 MEQ/L (98-107); CREATININE FOR GFR 0.65 MG/DL (0.55-1.02); GLOMERULAR FILTRATION RATE > 60.0 (>51); GLUCOSE, FASTING 91 MG/DL (70-105); MAGNESIUM LEVEL 2.4 MG/DL (1.8-2.4); POTASSIUM SERUM 4.4 MEQ/L (3.5-5.1); SODIUM LEVEL 142 MEQ/L (136-145); TOTAL PROTEIN 7.3 GM/DL (6.4-8.2)
== END ==
LOC: M WUC 08:21
PROVIDERS: ATTEND Physician Assistant Medical
DX: R41.82 Altered mental status, unspecified (principal)

== ENCOUNTER → 2019-02-12 | Outpatient (CLI) | payer BC ==
[~2019-02-12] MED LIST changes: -/ADVA50050 IN; -/MOXI40TA OR; -/TIOT18INH INH; +ADVA1AER2 IN; +AVEL1TAB2 OR; +SPIR1CAP INH
--- NOTE | 2019-02-12 11:49 | REPMRS ---
Patient History The patient states she has not had a clinical breast exam in over a year. Family history of breast cancer at age 50 in mother, unknown cancer at age 72 in mother, premenopausal unknown cancer at age 50 or over in paternal aunt, unknown cancer at age 50 or over in paternal aunt, unknown cancer at age 35 in maternal aunt, unknown cancer at age 50 or over in paternal grandfather. Benign stereotatic loc for ea lesion of the right breast, May 23, 2012. Benign localization of breast nodule of the right breast, 2000. 3D TOMOSYNTHESIS WAS PERFORMED. Digital Mammo Screening Bilat: February 12, 2019 - Exam #: [id number] Bilateral CC and MLO view(s) were taken. Technologist: Marjan Briones, Technologist Prior study comparison: February 13, 2013, digital woman screen mammo, performed at [facility]. March 20, 2012, right breast digital mammo diagnostic unilateral performed at [facility]. FINDINGS: The breast tissue is heterogeneously dense. This may lower the sensitivity of mammography. There has been no change in the appearance of the mammogram from the prior studies. There is a moderate amount of residual fibroglandular tissue which is fairly symmetric. There is no interval development of dominant mass, areas of architectural distortion, or clustered microcalcification typical of malignancy. Assessment: BI-RADS/ACR category 1 mammogram. Negative Mammogram. Recommendation Routine screening mammogram in 1 year (for women over age 40). This mammogram was interpreted with the aid of an FDA-approved computer-aided dectection system. Electronically Signed By: Enoch Bridges MD 02/12/19 [id number]
== END ==
LOC: M RAD 10:34
PROVIDERS: ATTEND Family Medicine Addiction Medicine
DX: Z12.31 Encounter for screening mammogram for malignant neoplasm of breast (principal); Z86.018 Personal history of other benign neoplasm; Z80.3 Family history of malignant neoplasm of breast

== ENCOUNTER → 2019-03-05 | Outpatient (REF) | payer BC ==
[2019-03-05 14:27] LABS: ALBUMIN 3.5 GM/DL (3.2-5.2); ALT/SGPT 67 U/L (12-78); BILIRUBIN,TOTAL 0.3 MG/DL (0.2-1.0); BLOOD UREA NITROGEN 19 MG/DL (7-18); CALCIUM LEVEL 8.7 MG/DL (8.5-10.1); CARBON DIOXIDE LEVEL 28 MEQ/L (21-32); CHLORIDE LEVEL 108 MEQ/L (98-107); CHOLESTEROL LEVEL 175 MG/DL (<200); CHOLESTEROL RISK RATIO 2.868 (<5); CREATININE FOR GFR 0.75 MG/DL (0.55-1.30); GLOMERULAR FILTRATION RATE > 60.0 (>51); GLUCOSE, FASTING 101 MG/DL (70-100); HDL CHOLESTEROL 61 MG/DL (>40); LDL CHOLESTEROL 97 MG/DL (<100); NON-HDL-C 114 MG/DL; SODIUM LEVEL 143 MEQ/L (136-145); TOTAL PROTEIN 7.1 GM/DL (6.4-8.2); TRIGLYCERIDES LEVEL 87 MG/DL (<150)
== END ==
LOC: M LAB REF 12:37
PROVIDERS: ATTEND Family Medicine Addiction Medicine
DX: Z00.01 Encounter for general adult medical examination with abnormal findings (principal)

== ENCOUNTER 2019-05-06 07:34 | Day surgery (SDC) | payer BC ==
[~2019-05-06] VITALS: Ht 165.1 cm; Wt 113.9 kg
[2019-05-06] MEDS: NS 1,000 ML IV ONE (07:54)
[2019-05-06] MEDS ORDERED: PROPOFOL 200 MG/20 ML VIAL As Ordered ONE (08:14)
[2019-05-06] MEDS ORDERED: LIDOCAINE 2% INJ 100 MG/5 ML SDV (FOR ANES.) As Ordered ONE (08:14)
--- NOTE | 2019-05-06 09:36 | ROOR ---
Patient Name: Tierra Aguilar Procedure Date: 05/06/2019 8:51 AM Date of : 1960 Age: 59 Room: [facility] Gender: Female Note Status: Finalized Procedure: Colonoscopy Indications: Positive fecal immunochemical test Providers: Miguel Parisi MD Referring MD: Winston VELAZQUEZ MD Requesting Provider: Medicines: Monitored Anesthesia Care Complications: No immediate complications. Procedure: Pre-Anesthesia Assessment: - Prior to the procedure, a History and Physical was performed, and patient medications and allergies were reviewed. The patient is competent. The risks and benefits of the procedure and the sedation options and risks were discussed with the patient. All questions were answered and informed consent was obtained. Patient identification and proposed procedure were verified by the physician, the nurse and the anesthesiologist in the procedure room. Mental Status Examination: alert and oriented. Airway Examination: normal oropharyngeal airway and neck mobility. Respiratory Examination: clear to auscultation. CV Examination: normal. Prophylactic Antibiotics: The patient does not require prophylactic antibiotics. Prior Anticoagulants: The patient has taken no previous anticoagulant or antiplatelet agents. ASA Grade Assessment: II - A patient with mild systemic disease. After reviewing the risks and benefits, the patient was deemed in satisfactory condition to undergo the procedure. The anesthesia plan was to use monitored anesthesia care (MAC). Immediately prior to administration of medications, the patient was re-assessed for adequacy to receive sedatives. The heart rate, respiratory rate, oxygen saturations, blood pressure, adequacy of pulmonary ventilation, and response to care were monitored throughout the procedure. The physical status of the patient was re-assessed after the procedure. The Colonoscope was introduced through the anus and advanced to the terminal ileum, with identification of the appendiceal orifice and IC valve. The colonoscopy was performed without difficulty. The patient tolerated the procedure well. The quality of the bowel preparation was good. The terminal ileum, ileocecal valve, appendiceal orifice, and rectum were photographed. Scope insertion time was 3 minutes. Scope withdrawal time was 9 minutes. The total duration of the procedure was 12 minutes. Findings: The perianal and digital rectal examinations were normal. The terminal ileum appeared normal. Two sessile polyps were found in the ascending colon. The polyps were 5 to 6 mm in size. These polyps were removed with a cold snare. Resection and retrieval were complete. Verification of patient identification for the specimen was done by the physician and nurse using the patient's name, date and medical record number. Estimated blood loss was minimal. Non-bleeding external and internal hemorrhoids were found during retroflexion. The hemorrhoids were large. Impression: - The examined portion of the ileum was normal. - Two 5 to 6 mm polyps in the ascending colon, removed with a cold snare. Resected and retrieved. - Non-bleeding external and internal hemorrhoids. Recommendation: - Patient has a contact number available for emergencies. The signs and symptoms of potential delayed complications were discussed with the patient. Return to normal activities tomorrow. Written discharge instructions were provided to the patient. - High fiber diet. - Continue present medications. - Await pathology results. - Repeat colonoscopy in 5 years for surveillance based on pathology results. - Return to GI clinic in 5 years. - Based on the biopsy results you will receive a phone call from GI clinic in 2-3 weeks to review the pathology results AND/OR your results will be faxed to your Primary care physician. - Return to primary care physician. Miguel Parisi MD Miguel Parisi MD 05/06/2019 9:36:11 AM Electronically signed by Miguel Parisi MD Number of Addenda: 0 Note Initiated On: 05/06/2019 8:51 AM Estimated Blood Loss: Estimated blood loss was minimal.
[2019-05-06 09:40] VITALS: BP 127/92
== END 2019-05-06 10:50 | disposition home or self-care (01) ==
LOC: M OPP 07:34
PROVIDERS: ATTEND Internal Medicine Gastroenterology
DX: D12.5 Benign neoplasm of sigmoid colon (principal); K64.8 Other hemorrhoids; R19.5 Other fecal abnormalities

== ENCOUNTER → 2019-06-27 | Outpatient (CLI) | payer BC ==
[~2019-06-27] MED LIST changes: +E-Z-GAS II EFFERVESCENT PACKET (SODIUM BICARB./CITRIC ACID/SIMETHICONE) As Ordered ONE; +E-Z-HD 98% w/w 340GM SUSP BTL As Ordered ONE; +E-Z-PAQUE 96% w/w SUSP 176GM BTL As Ordered ONE; +OMEP-218 PO
--- NOTE | 2019-06-27 15:58 | REP ---
Examination Requested: Esophagram Barium Swallow Reason For Exam/Comment: Dysphasia, gastroesophageal reflux disease Esophagram: The procedure was performed CHIKA Pyle, under the direct supervision of Dr. Cerda. The images were reviewed with Dr. Cerda. A single PA chest x-ray is submitted as a director of scout work film. The superior mediastinal structures are midline. The heart size is within normal limits. The lungs are clear. Liquid barium and gas producing granules were given in the erect position as well as liquid barium in the prone oblique position, in order to perform a double contrast esophagram examination. Oral and pharyngeal stages of the examination were unremarkable. Esophageal transport is efficient and there is no esophagitis, stricture, or mucosal ring noted. There is no hiatal hernia noted. Gastroesophageal reflux was not visualized throughout the course of the exam. Impression: 1. Unremarkable esophagram. 0.8 minutes of fluoroscopy time was utilized for this procedure. Some fluoroscopic images are performed with last image hold technology. These images require no additional radiation. Reviewed by CHIKA Augustin 06/27/2019 01:01 P Electronically Signed by Eder Cerda DO 06/27/2019 03:50 P
== END ==
LOC: M RAD 06-18 08:11
PROVIDERS: ATTEND Physician Assistant Medical
DX: K21.9 Gastro-esophageal reflux disease without esophagitis (principal); R13.10 Dysphagia, unspecified

== ENCOUNTER 2019-07-09 10:38 | Day surgery (SDC) | payer BC ==
[~2019-07-09] VITALS: Ht 165.1 cm; Wt 114.2 kg
[~2019-07-09 10:38] MED LIST changes: -E-Z-GAS II EFFERVESCENT PACKET (SODIUM BICARB./CITRIC ACID/SIMETHICONE) As Ordered ONE; -E-Z-HD 98% w/w 340GM SUSP BTL As Ordered ONE; -E-Z-PAQUE 96% w/w SUSP 176GM BTL As Ordered ONE
[2019-07-09] MEDS ORDERED: NS 1,000 ML IV ONE (11:00)
[2019-07-09] MEDS ORDERED: propofoL 200 MG/20 ML VIAL As Ordered ONE (11:45)
[2019-07-09] MEDS ORDERED: LIDOCAINE 2% INJ 100 MG/5 ML SDV (FOR ANES.) As Ordered ONE (11:45)
--- NOTE | 2019-07-09 12:43 | ROOR ---
Patient Name: Tierra Aguilar Procedure Date: 07/09/2019 12:05 PM Date of : 1960 Age: 59 Room: [facility] Gender: Female Note Status: Finalized Procedure: Upper GI endoscopy Indications: Dysphagia, Suspected esophageal reflux Providers: Miguel Parisi MD Referring MD: Maribel COLORADO NP Requesting Provider: Medicines: Monitored Anesthesia Care Complications: No immediate complications. Procedure: Pre-Anesthesia Assessment: - Prior to the procedure, a History and Physical was performed, and patient medications and allergies were reviewed. The patient is competent. The risks and benefits of the procedure and the sedation options and risks were discussed with the patient. All questions were answered and informed consent was obtained. Patient identification and proposed procedure were verified by the physician, the nurse and the anesthesiologist in the procedure room. Mental Status Examination: alert and oriented. Airway Examination: normal oropharyngeal airway and neck mobility. Respiratory Examination: clear to auscultation. CV Examination: normal. Prophylactic Antibiotics: The patient does not require prophylactic antibiotics. Prior Anticoagulants: The patient has taken no previous anticoagulant or antiplatelet agents. ASA Grade Assessment: II - A patient with mild systemic disease. After reviewing the risks and benefits, the patient was deemed in satisfactory condition to undergo the procedure. The anesthesia plan was to use monitored anesthesia care (MAC). Immediately prior to administration of medications, the patient was re-assessed for adequacy to receive sedatives. The heart rate, respiratory rate, oxygen saturations, blood pressure, adequacy of pulmonary ventilation, and response to care were monitored throughout the procedure. The physical status of the patient was re-assessed after the procedure. The Endoscope was introduced through the mouth, and advanced to the second part of duodenum. The upper GI endoscopy was accomplished without difficulty. The patient tolerated the procedure well. Findings: The Z-line was irregular and was found 39 cm from the incisors. LA Grade A (one or more mucosal breaks less than 5 mm, not extending between tops of 2 mucosal folds) esophagitis with no bleeding was found in the distal esophagus. Biopsies were taken with a cold forceps for histology. Biopsies were obtained from the proximal and distal esophagus with cold forceps for histology of suspected eosinophilic esophagitis. Verification of patient identification for the specimen was done by the physician and nurse using the patient's name, date and medical record number. Estimated blood loss was minimal. Scattered moderate inflammation characterized by erosions and granularity was found in the gastric antrum. Biopsies were taken with a cold forceps for Helicobacter pylori testing. The duodenal bulb and second portion of the duodenum were normal. Impression: - Z-line irregular, 39 cm from the incisors. - LA Grade A reflux esophagitis. Rule out Muñoz's esophagus. Biopsied. - Gastritis. Biopsied. - Normal duodenal bulb and second portion of the duodenum. Recommendation: - Patient has a contact number available for emergencies. The signs and symptoms of potential delayed complications were discussed with the patient. Return to normal activities tomorrow. Written discharge instructions were provided to the patient. - Resume previous diet. - Continue present medications. - Await pathology results. - Follow an antireflux regimen. - Telephone GI clinic for pathology results in 2 weeks. - Return to primary care physician. Miguel Parisi MD Miguel Parisi MD 07/09/2019 12:43:31 PM Electronically signed by Miguel Parisi MD Number of Addenda: 0 Note Initiated On: 07/09/2019 12:05 PM Estimated Blood Loss: Estimated blood loss was minimal.
[2019-07-09 12:50] VITALS: BP 145/73
== END 2019-07-09 13:02 | disposition home or self-care (01) ==
LOC: M OPP 10:38
PROVIDERS: ATTEND Internal Medicine Gastroenterology
DX: K22.8 Other specified diseases of esophagus (principal); K21.0 Gastro-esophageal reflux disease with esophagitis; K29.70 Gastritis, unspecified, without bleeding; Z87.891 Personal history of nicotine dependence; Z88.0 Allergy status to penicillin; Z88.2 Allergy status to sulfonamides; Z88.5 Allergy status to narcotic agent; Z88.8 Allergy status to other drugs, medicaments and biological substances; Z85.41 Personal history of malignant neoplasm of cervix uteri; Z85.43 Personal history of malignant neoplasm of ovary

== ENCOUNTER → 2020-02-19 | Outpatient (CLI) | payer OTHER ==
--- NOTE | 2020-02-19 20:26 | REP ---
LEFT RIB SERIES: Four views of the left ribs are performed. There are nondisplaced fractures of the anterolateral left 7th and 8th ribs. No acute findings are seen in the lungs. Stable chronic interstitial prominence is noted bilaterally. IMPRESSION: Nondisplaced fractures left 7th and 8th ribs anterolaterally. Electronically Signed by Enoch Bridges MD 02/20/2020 11:58 A
== END ==
LOC: M WUC 17:03
PROVIDERS: ATTEND Nurse Practitioner Family
DX: S22.42XA Multiple fractures of ribs, left side, initial encounter for closed fracture (principal); X58.XXXA Exposure to other specified factors, initial encounter; Y92.89 Other specified places as the place of occurrence of the external cause

== ENCOUNTER → 2020-03-09 | Outpatient (CLI) | payer OTHER | LOC: M LABSMTC 13:07 | PROVIDERS: ATTEND Family Medicine | DX: Z11.59 Encounter for screening for other viral diseases (principal) ==

== ENCOUNTER → 2020-06-16 | Outpatient (REF) | payer OTHER ==
[2020-07-13 13:55] LABS: APPEARANCE, URINE CLOUDY (CLEAR); BACTERIA, URINE AUTO 1+ (NEGATIVE); BILIRUBIN, URINE AUTO NEGATIVE (NEGATIVE); BLOOD, URINE BLOOD 2+ (NEGATIVE); COLOR, URINE YELLOW (YELLOW); GLUCOSE, URINE (UA) AUTO NEGATIVE (NEGATIVE); KETONE, URINE AUTO NEGATIVE (NEGATIVE); LEUKOCYTE ESTERASE, URINE AUTO 2+ (NEGATIVE); MUCUS, URINE SMALL (NEGATIVE); NITRITE, URINE AUTO POSITIVE (NEGATIVE); PROTEIN, URINE AUTO NEGATIVE (NEGATIVE); RBC, URINE AUTO 22 /HPF (0-3); SPECIFIC GRAVITY URINE AUTO 1.015 (1.002-1.035); SQUAMOUS EPITHELIAL CELL UR AU 0 /HPF (0-6); UROBILINOGEN, URINE AUTO 0.2 mg/dL (0.0-2.0); WBC, URINE AUTO 99 /HPF (0-3)
== END ==
LOC: M LAB REF 13:40
PROVIDERS: ATTEND Physician Assistant Medical
DX: N39.0 Urinary tract infection, site not specified (principal)

== ENCOUNTER → 2020-08-18 | Outpatient (REF) | payer OTHER ==
[2020-08-18 13:12] LABS: BASO # 0.1 10^3/uL (0.0-0.2); EOS # 0.2 10^3/uL (0.0-0.5); HEMOGLOBIN 12.4 g/dl (12.0-15.5); LYMPH # 1.5 10^3/uL (1.5-5.0); LYMPH % 30.4 % (24.0-44.0); MEAN CORPUSCULAR HEMOGLOBIN 27.9 pg (27.0-33.0); MEAN CORPUSCULAR HGB CONC 31.8 g/dl (32.0-36.5); MEAN CORPUSCULAR VOLUME 87.8 fl (80.0-96.0); MONO # 0.6 10^3/uL (0.0-0.8); MONO % 11.3 % (0.0-5.0); NEUTROPHILS # 2.6 10^3/uL (1.5-8.5); NEUTROPHILS % 52.9 % (36.0-66.0); PLATELET COUNT, AUTOMATED 270 10^3/uL (150-450); RED BLOOD COUNT 4.44 10^6/uL (4.00-5.40); WHITE BLOOD COUNT 4.9 10^3/uL (4.0-10.0)
[2020-08-18 13:25] LABS: HEMOGLOBIN A1c 5.3 %
[2020-08-18 13:30] LABS: ALBUMIN 3.5 GM/DL (3.2-5.2); BILIRUBIN,TOTAL 0.4 MG/DL (0.2-1.0); CHOLESTEROL RISK RATIO 3.228 (<5); CREATININE FOR GFR 1.42 MG/DL (0.55-1.30); GLOMERULAR FILTRATION RATE 40.2 (>45); POTASSIUM SERUM 4.2 MEQ/L (3.5-5.1); TOTAL PROTEIN 6.7 GM/DL (6.4-8.2)
== END ==
LOC: M LAB REF 11:20
PROVIDERS: ATTEND Nurse Practitioner Family
DX: Z01.818 Encounter for other preprocedural examination (principal); H26.9 Unspecified cataract; E66.01 Morbid (severe) obesity due to excess calories

== ENCOUNTER → 2021-03-30 | Outpatient (CLI) | payer OTHER ==
[2021-03-30 16:03] LABS: BASO % 0.5 % (0.0-1.0); EOS # 0.2 10^3/uL (0.0-0.5); EOS % 3.2 % (0.0-3.0); HEMATOCRIT 42.4 % (36.0-47.0); HEMOGLOBIN 13.5 g/dl (12.0-15.5); LYMPH # 1.6 10^3/uL (1.5-5.0); LYMPH % 21.2 % (24.0-44.0); MEAN CORPUSCULAR HEMOGLOBIN 28.6 pg (27.0-33.0); MEAN CORPUSCULAR HGB CONC 31.8 g/dl (32.0-36.5); MEAN CORPUSCULAR VOLUME 89.8 fl (80.0-96.0); MONO # 0.8 10^3/uL (0.0-0.8); MONO % 10.1 % (2.0-8.0); NEUTROPHILS # 4.8 10^3/uL (1.5-8.5); NEUTROPHILS % 64.3 % (36.0-66.0); PLATELET COUNT, AUTOMATED 260 10^3/uL (150-450); RED BLOOD COUNT 4.72 10^6/uL (4.00-5.40); WHITE BLOOD COUNT 7.5 10^3/uL (4.0-10.0)
--- NOTE | 2021-03-30 16:08 | REP ---
INDICATION: POST COVID. COMPARISON: 02/19/2020 TECHNIQUE: PA and lateral FINDINGS: Fibrotic changes are again seen throughout the lung servin status quo. There is a subtle somewhat patchy left upper lobe opacity which has increased. Pleural angles again seen to be sharp. Heart is not enlarged. There is no change in the osseous structures. IMPRESSION: Fibrotic changes are suspected but with a somewhat new poorly defined left upper lobe opacity. Consider contrast enhanced CT of the chest. <Electronically signed by Eder Cerda > 03/30/21 [id number]
[2021-03-30 16:40] LABS: ALBUMIN 3.7 GM/DL (3.2-5.2); ALT/SGPT 54 U/L (12-78); BILIRUBIN,TOTAL 0.7 MG/DL (0.2-1.0); BLOOD UREA NITROGEN 18 MG/DL (7-18); CALCIUM LEVEL 9.6 MG/DL (8.8-10.2); CARBON DIOXIDE LEVEL 30 MEQ/L (21-32); CHLORIDE LEVEL 106 MEQ/L (98-107); CREATININE FOR GFR 0.65 MG/DL (0.55-1.30); GLOMERULAR FILTRATION RATE > 60.0 (>45); GLUCOSE, FASTING 93 MG/DL (70-100); NT-PRO BNP 33 PG/ML (<125); POTASSIUM SERUM 4.4 MEQ/L (3.5-5.1); SODIUM LEVEL 140 MEQ/L (136-145); THYROID STIMULATING HORMONE 0.769 uIU/ML (0.358-3.740)
== END ==
LOC: M WUC 14:57
PROVIDERS: ATTEND Physician Assistant
DX: R06.00 Dyspnea, unspecified (principal); R03.0 Elevated blood-pressure reading, without diagnosis of hypertension; U07.1 COVID-19

== ENCOUNTER → 2021-04-23 | Outpatient (CLI) | payer OTHER ==
--- NOTE | 2021-04-23 14:59 | REP ---
INDICATION: LOCALIZED EDEMA, R/O DVT COMPARISON: None. TECHNIQUE: Real time compression and duplex Doppler interrogation of the bilateral lower extremity deep venous system is performed. Compression ultrasound is performed of the bilateral peroneal and posterior tibial veins. FINDINGS: Bilaterally, the common femoral, superficial femoral and popliteal veins are fully compressible with transducer pressure and demonstrate normal spontaneous and phasic flow, without evidence of deep venous thrombosis. No thrombus is seen in the bilateral visualized portions of the posterior tibial veins. The peroneal veins could not be seen bilaterally due to soft tissue edema. IMPRESSION: No evidence of deep venous thrombosis of the bilateral lower extremity femoral popliteal venous system. <Electronically signed by Enoch Bridges > 04/23/21 [id number]
== END ==
LOC: M RAD 13:50
PROVIDERS: ATTEND Physician Assistant
DX: R60.0 Localized edema (principal)

== ENCOUNTER → 2021-04-23 | Outpatient (CLI) | payer OTHER ==
--- NOTE | 2021-04-26 09:47 | ECHO ---
ECHOCARDIOGRAM DATE OF PROCEDURE: 04/23/2021 Age: 60 Gender: Height: Weight: REFERRING PROVIDER: CLEO Vilchis. PATIENT LOCATION: Outpatient. REASON FOR THE STUDY: Personal history of COVID-19. DOPPLER MEASUREMENT Peak velocity across the LVOT 0.8 m/s Mitral E 0.7 Mitral A 0.6 with a ratio of 1.1 2D COMMENTS: 1. Technically limited study due to poor acoustic window secondary to body habitus. 2. The left ventricular size is normal as well as the left ventricular systolic function, estimated at 60 to 65%. 3. The left atrium appeared to be normal. Normal right atrium and right ventricle. 4. The atrial septum appeared to be normal without evidence of defect or shunt. 5. Normal aortic root. 6. A small pericardial effusion was noted, no evidence of cardiac tamponade. 7. Mildly calcified aortic valve with normal leaflet excursion. Mildly calcified mitral annulus with normal appearing mitral valve leaflet motion. Normal tricuspid valve. The pulmonic valve and proximal pulmonary artery branches were not well visualized. 8. The inferior vena cava was not visualized. DOPPLER: No significant valvular abnormality detected. IMPRESSION: 1. Technically limited study due to poor acoustic window. 2. Normal global left ventricular systolic and diastolic function. 3. Aortic valve sclerosis without stenosis or aortic regurgitation. 4. Isolated mitral annulus calcification. 5. A small pericardial effusion noted, no evidence of cardiac tamponade.
== END ==
LOC: M CARPUL 09:51
PROVIDERS: ATTEND Physician Assistant
DX: U07.1 COVID-19 (principal)

== ENCOUNTER → 2021-04-28 | Outpatient (CLI) | payer OTHER ==
[~2021-04-28] MED LIST changes: +ISOVUE-370 76% 100ML VIAL As Ordered ONE
--- NOTE | 2021-04-28 08:59 | REP ---
INDICATION: PERSONAL HX MALIGNANT NEOPLASM OF LUNG AND COVID COMPARISON: 11/10/2011 TECHNIQUE: Axial contrast enhanced images from the thoracic inlet to the upper abdomen with coronal and sagittal reformations using 75 ml Isovue 370 intravenous contrast material. This CT examination was performed using the following dose reduction techniques: Automated exposure control, adjustment of mA and/or kv according to the patient's size, and use of iterative reconstruction technique. FINDINGS: There is a 12 mm noncalcified nodule in the right apex which has gradually increased in size. The lung servin demonstrate moderate scattered areas of subpleural fibrosis bilaterally which have obviously progressed from prior examination. Moderate mediastinal and hilar adenopathy is noted. Tracheobronchial tree is patent. No effusion. No pneumothorax. Further evaluation of the mediastinum demonstrates stable thoracic aorta, pulmonary vasculature, and heart/pericardium. No aortic aneurysm/dissection or cardiomegaly. No pericardial effusion. Surrounding musculoskeletal structures are intact. IMPRESSION: 1. Noncalcified right upper lobe nodule now measures approximately 12 mm and increased from 2011 examination (previously measuring 7 mm). No further acute nodule or mass. Consider PET-CT or biopsy if no prior definitive diagnosis was obtained. 2. Moderate scattered bilateral areas of subpleural fibrosis increased from prior examination. Mild/moderate mediastinal and hilar adenopathy possibly reactive in nature. <Electronically signed by Moses Mendoza > 04/28/21 [id number]
== END ==
LOC: M RAD 08:12
PROVIDERS: ATTEND Physician Assistant
DX: R93.89 Abnormal findings on diagnostic imaging of other specified body structures (principal); Z85.118 Personal history of other malignant neoplasm of bronchus and lung
CPT/HCPCS: 71260; Q9967

== ENCOUNTER → 2021-05-25 | Outpatient (CLI) | payer OTHER ==
[~2021-05-25] MED LIST changes: -ISOVUE-370 76% 100ML VIAL As Ordered ONE; +OMEP-173 PO; -OMEP-218 PO
== END ==
LOC: M PLARAD 14:42
PROVIDERS: ATTEND Internal Medicine Pulmonary Disease
DX: R91.1 Solitary pulmonary nodule (principal)

== ENCOUNTER → 2021-06-21 | Outpatient (CLI) | payer OTHER | LOC: M PLARAD 08:39 | PROVIDERS: ATTEND Internal Medicine Pulmonary Disease | DX: R91.1 Solitary pulmonary nodule (principal) | CPT/HCPCS: 78815; A9552 ==

== ENCOUNTER → 2021-10-21 | Outpatient (CLI) | payer OTHER ==
[~2021-10-21] MED LIST changes: -OMEP-173 PO; +OMEP-218 PO
--- NOTE | 2021-10-22 06:59 | REP ---
INDICATION: SOLITARY PULMONARY NODULE COMPARISON: 04/28/2021 TECHNIQUE: Axial noncontrast images from the thoracic inlet to the upper abdomen with coronal and sagittal reformations. This CT examination was performed using the following dose reduction techniques: Automated exposure control, adjustment of mA and/or kv according to the patient's size, and use of iterative reconstruction technique. FINDINGS: 12 mm noncalcified nodule in the right apex remains stable and was deemed non hypermetabolic on recent PET-CT. Scattered moderate bilateral predominately subpleural fibrosis is unchanged. No new acute consolidation, suspicious nodule or mass. No effusion. No pneumothorax. Tracheobronchial tree is patent. Mediastinum demonstrates stable appearance to the thoracic aorta, pulmonary vasculature, and heart/pericardium. No cardiomegaly or pericardial effusion. Few small partially calcified left hilar lymph nodes again noted. No significant adenopathy. Surrounding musculoskeletal structures intact and without acute osseous abnormality. Limited upper abdomen demonstrates normal bilateral adrenal glands and cholelithiasis. IMPRESSION: 1. Stable 12 mm noncalcified nodule in the right apex non hypermetabolic on recent PET-CT dated 06/21/2021. 2. Stable moderate scattered fibrosis. 3. No acute mediastinal or pleuroparenchymal process. <Electronically signed by Moses Mendoza > 10/22/21 [id number]
== END ==
LOC: M RAD 15:41
PROVIDERS: ATTEND Internal Medicine Pulmonary Disease
DX: R91.1 Solitary pulmonary nodule (principal)